=== PATIENT | male | born 1980 | race Caucasian/White ===

== ENCOUNTER 2020-09-24 09:01 | Emergency (ER) | payer OTHER, SELFPAY ==
[2020-09-24 09:20] VITALS: BP 139/95; PULSE 78; RESP 20; TEMP 37.3; O2SAT 98
--- NOTE | 2020-09-24 09:51 | ED.URI ---
HPI - URI/Sore Throat General Chief Complaint: Upper Respiratory Infection Stated Complaint: Sore throat Time Seen by Provider: 09/24/20 09:35 Source: patient Mode of arrival: ambulatory Limitations: no limitations History of Present Illness HPI Narrative: Pete Jurado is a 39-year-old male with no prior medical history who comes to [facility] with complaints of upper respiratory symptoms including not feeling well and having sore throat and mild sinus drainage. Denies fever, symptoms started on Sunday Related Data Allergies Allergy/AdvReac Type Severity Reaction Status Date / Time clarithromycin [From Biaxin] Allergy Swelling Verified 09/24/20 09:50 of Lip/Tongue/Throat Review of Systems Review of Systems: Narrative: CONSTITUTIONAL: Denies fever, chills, sweats. EYES: Denies visual changes, redness, discharge. ENT: Denies rhinorrhea, has congestion, has sore throat, otalgia. CARDIOVASCULAR: Denies chest pain, palpitations, edema. RESPIRATORY: Denies dyspnea, wheezing, cough GASTROINTESTINAL: Denies abdominal pain, nausea, vomiting, diarrhea. GENITOURINARY: Denies dysuria, hematuria, abnormal discharge SKIN: Denies rash or itching. NEUROLOGIC: Denies numbness, or focal weakness. PSYCHIATRIC: Denies anxiety or depression. [facility] Past Medical History Medical History No acute medical problems Social History Social History (Updated 09/24/20 @ 09:54 by Nasima Guillen CNP) Smoking status: Never smoker Alcohol intake: current Comments At time of signature, I agree with nursing past medical, surgical, social and family history. There is no relevant family history pertinent to the presenting complaint. Blood pressure is elevated today and should follow-up with primary care physician is also managing a sick child while here Exam Narrative: Exam Narrative: GENERAL: This is a well-nourished, well-developed patient, in mild distress. HEAD: normocephalic, atraumatic. EYES: Sclera clear/white. Vision is grossly intact. EARS: External ears normal, auditory canals mild erythema and without drainage, fluid behind TMs . Hearing grossly intact. NOSE: External nose normal without nasal discharge, nares without redness, no rhinorrhea. THROAT: Mucous membranes moist, posterior pharynx erythema NECK: Neck supple, non-tender CARDIOVASCULAR: Regular rate and rhythm without murmurs, gallops, or rubs. RESPIRATORY: Clear to auscultation. Breath sounds equal bilaterally. No wheezes, rales, or rhonchi. GASTROINTESTINAL: Abdomen soft, SKIN: warm, intact with no suspicious lesions or rash, good texture and turgor. NEURO: awake, alert, and oriented to person, place and time. There were no obvious focal neurologic abnormalities. Steady gait EXTREMITIES: Normal range of motion. BACK: Nontender without deformity Course Course Emergency Course: Patient came to [facility] with 2-year-old child and he himself is feeling poorly so decided to be seen Strep test is negative Started on Sudafed and Flonase-should hydrate and rest Vital Signs Vital signs: Vital Signs Temperature 99.2 F 09/24/20 09:20 Pulse Rate 78 09/24/20 09:20 Respiratory Rate 20 09/24/20 09:20 Blood Pressure 139/95 H 09/24/20 09:20 Pulse Oximetry 98 09/24/20 09:20 Temperature 99.2 F 09/24/20 09:20 Pulse Rate 78 09/24/20 09:20 Respiratory Rate 20 09/24/20 09:20 Blood Pressure 139/95 H 09/24/20 09:20 Pulse Oximetry 98 09/24/20 09:20 MDM - URI/Sore Throat Lab Data Labs: Strep Screen Presumptive Negative *(Reference Range: Negative)* Critical Care Time Critical Care Time Critical Care Time: No Discharge Plan Discharge Clinical Impression: Upper respiratory infection Qualifiers: URI type: unspecified URI Qualified Code(s): J06.9 - Acute upper respiratory infection, unspecified Patient Disp
== END 2020-09-24 10:20 | disposition home or self-care (01) ==
PROVIDERS: Emergency Provider Nurse Practitioner
DX: J06.9 Acute upper respiratory infection, unspecified (principal)
CPT/HCPCS: 87081; 87880; 99213; G0463